=== PATIENT | female | born 1960 | race Caucasian/White ===

== ENCOUNTER 2020-10-07 08:36 | Inpatient (IN) | payer OTHER ==
[~2020-10-07] VITALS: Ht 157.5 cm; Wt 65.8 kg
[2020-10-07] MEDS ORDERED: HYDRALAZINE HCL25 MG PO (08:44)
[2020-10-07] MEDS ORDERED: B-121000 MC1 PO (08:44)
[2020-10-07] MEDS ORDERED: AMLODIPINE-OLM1 EACH PO (08:44)
[2020-10-07] MEDS ORDERED: EZALLOR SPRINKLE5 MG PO (08:44)
== END 2020-10-11 19:44 | disposition home or self-care (01) | DRG 392 ==
LOC: ER 08:36 → MEDJ 20:57
PROVIDERS: ADMIT Internal Medicine; ATTEND Internal Medicine
PROC: BW2110Z Computerized Tomography (CT Scan) of Abdomen and Pelvis using Low Osmolar Contrast, Unenhanced and Enhanced (ICD-10-PCS; principal; 2020-10-07)
DX: K57.30 Diverticulosis of large intestine without perforation or abscess without bleeding (principal); R18.8 Other ascites; R65.10 Systemic inflammatory response syndrome (SIRS) of non-infectious origin without acute organ dysfunction; R10.31 Right lower quadrant pain; E78.5 Hyperlipidemia, unspecified; I10 Essential (primary) hypertension; Z20.822 Contact with and (suspected) exposure to COVID-19; J45.909 Unspecified asthma, uncomplicated; R11.2 Nausea with vomiting, unspecified; D72.828 Other elevated white blood cell count